=== PATIENT | female | born 1995 | race Caucasian/White ===

== ENCOUNTER 2018-05-10 02:52 | Emergency (ER) | payer OTHER ==
[2018-05-10] MEDS ORDERED: ACETAMINOPHEN 325 MG TABLET PO ONE (03:57)
--- NOTE | 2018-05-10 03:57 | ER Document Report ---
HPI - HPI Pain Level: 4 Notes: Patient is a 23-year-old female with no significant past medical history who presents to the ED complaining of urinary burning, urgency, and frequency that started last night. Patient states that she is also voiding small amounts. She has been otherwise eating and drinking without any difficulties. Denies any drug allergies. No other concerns or complaints at this time. Denies any headache, fever, neck pain, URI, sore throat, chest pain, palpitations, syncope , cough, shortness of breath, wheeze, dyspnea, abdominal pain, nausea/vomiting/ diarrhea, loss of control of bowel or bladder, numbness/tingling, saddle anesthesia, muscle paralysis/weakness, or rash. - ROS Systems Reviewed and Negative: Yes All other systems reviewed and negative - CONSTITUTIONAL Constitutional: DENIES: Fever, Chills - EENT EENT: DENIES: Sore Throat, Ear Pain, Eye problems - NEURO Neurology: DENIES: Headache, Weakness, Vision blurred, Dizzinesss / Vertigo - CARDIOVASCULAR Cardiovascular: DENIES: Chest pain - RESPIRATORY Respiratory: DENIES: Trouble Breathing, Coughing - GASTROINTESTINAL Gastrointestinal: DENIES: Abdominal Pain, Black / Bloody Stools - URINARY Urinary: REPORTS: Dysuria, Urgency, Frequency - MUSCULOSKELETAL Musculoskeletal: DENIES: Extremity pain Past Medical History - Social History Smoking Status: Never Smoker Family History: Reviewed & Not Pertinent Patient has suicidal ideation: No Patient has homicidal ideation: No Renal/ Medical History: Denies: Hx Peritoneal Dialysis Vertical Provider Document - CONSTITUTIONAL Agree With Documented VS: Yes Notes: PHYSICAL EXAMINATION: GENERAL: Well-appearing, well-nourished and in no acute distress. LUNGS: Breath sounds clear to auscultation bilaterally and equal. No wheezes rales or rhonchi. HEART: Regular rate and rhythm without murmurs, rubs, gallops. ABDOMEN: Soft, nontender, nondistended abdomen. No guarding, no rebound. No masses appreciated. Normal bowel sounds present. No CVA tenderness bilaterally. Extremities: No cyanosis, clubbing, or edema b/l. Peripheral pulses 2+. Capillary refill less than 3 seconds. NEUROLOGICAL: Normal speech, normal gait. PSYCH: Normal mood, normal affect. SKIN: Warm, Dry, normal turgor, no rashes or lesions noted. - INFECTION CONTROL TRAVEL OUTSIDE OF THE [place] IN LAST 30 DAYS: No Course - Re-evaluation Re-evalutation: 05/10/18 04:24 Patient is an afebrile, well-hydrated, 23-year-old female who presents to the ED with an acute UTI, possible early pallor. Vitals are acceptable. PE is otherwise unremarkable. Patient does not have any significant tachycardia, tachypnea, or hypoxia. She is nontoxic-appearing and is tolerating p.o. without difficulties. See urinalysis results. Urine cultures pending. No other labs or imaging warranted at this time based on H&P. First dose of Keflex given p.o. today. Patient's abdomen is otherwise soft and nontender. HCG is negative. Patient's presentation and symptomatology not consistent for acute urosepsis, acute appendicitis, bowel obstruction, acute cholecystitis, acute cholangitis, perforated diverticulitis, incarcerated hernia, pancreatitis , perforated ulcer, peritonitis, sepsis, ectopic , tubo-ovarian abscess , ovarian torsion, or other systemic emergent condition at this time. Patient is aware that her condition can change from initial presentation and she needs to monitor symptoms closely and seek medical attention if any acute changes. Prescription for Keflex to go home. Conservative measures otherwise for symptoms. Recheck with your PCM in 3-5 days. Consider consult with a urologist. Return to the ED with any worsening/concerning symptoms otherwise as reviewed in discharge. Patient is in agreement. - Vital Signs Vital signs: Temp Pulse Resp BP Pulse Ox 98.4 F 110 H 16 125/70 99 05/10/18 03:05 05/10/18 03:05 05/10/18 03:05 05/10/18 03:05 05/10/18 03:05 Discharge - Discharge Clinical Impression: Acute UTI (urinary tract infection) Condition: Stable Disposition: HOME, SELF-CARE Instructions: Cephalexin ([facility]), Urinary Tract Infection ([facility]) Additional Instructions: Push fluids (i.e. water, cranberry juice) Proper hygenic technique Keep the skin clean Tylenol/ibuprofen as needed May use over the counter AZO for burning with urination x2-3 days Take medications as directed F/u with your PCM in 3-5 days for a recheck Consider consult with a Urologist for ongoing/worsening symptoms. Return to the ED with any worsening symptoms and/or development of fever, headache, chest pain, palpitations, syncope, shortness of breath, trouble breathing, abdominal pain, n/v/d, blood in stool/urine, loss of control of bowel /bladder, urinary retention, or other worsening symptoms that are concerning to you. Prescriptions: Cephalexin Monohydrate [Keflex 500 mg Capsule] 500 mg PO BID #14 capsule Referrals: [facility] [Provider Group] - Follow up as needed
[2018-05-10 04:23] LABS: APPEARANCE,URINE CLEAR; BILIRUBIN,URINE NEGATIVE (NEGATIVE); COLOR,URINE AMBER; GLUCOSE, URINE NEGATIVE (NEGATIVE); KETONES,URINE NEGATIVE (NEGATIVE); LEUKOCYTE ESTERASE,URINE LARGE (NEGATIVE); NITRITE,URINE POSITIVE (NEGATIVE); PROTEIN,URINE 100 mg/dL (NEGATIVE); URINE SPECIFIC GRAVITY 1.003
[2018-05-10] MEDS ORDERED: CEPHALEXIN 500 MG CAPSULE PO ONE (04:24)
[2018-05-10 05:06] VITALS: BP 114/69
== END 2018-05-10 04:52 | disposition home or self-care (01) ==
LOC: ER 02:52
DX: N39.0 Urinary tract infection, site not specified (principal)
CPT/HCPCS: 81001; 81025; 87086; 87088; 87186; 99283